=== PATIENT | male | born 1995 | race Caucasian/White ===

== ENCOUNTER 2018-08-08 15:35 | Outpatient (REF) | payer MEDICAID, SELFPAY ==
[2018-08-08 21:18] LABS: ALT 29 U/L (12-78); AST 19 U/L (15-37); Albumin 4.2 g/dL (3.4-5.0); Alkaline Phosphatase 108 U/L (46-116); Anion Gap 8.3 mmol/L (3-11); BUN 12 mg/dL (7-18); Bilirubin, Total 0.5 mg/dL (0.2-1.0); CO2 28.7 mmol/L (21.0-32.0); CREATININE 1.08 mg/dL (0.70-1.30); Calcium 10.1 mg/dL (8.5-10.1); Chloride 103 mmol/L (98-107); Glucose 85 mg/dL (70-100); Magnesium 1.7 mg/dL (1.8-2.4); Potassium 4.6 mmol/L (3.5-5.1); Sodium 140 mmol/L (136-145); Total Protein 7.2 g/dL (6.4-8.2)
[2018-08-08 21:32] LABS: HCT 44.7 % (40.0-50.0); HGB 15.4 g/dL (13.5-17.5); Mean Corp. HGB Concentration 34.5 g/dL (32.0-36.0); Mean Corpuscular Hemoglobin 31.4 pg (27.0-33.0); Mean Corpuscular Volume 91.2 fL (80-95); Mean Platelet Volume 11.5 fL (8.0-11.0); Platelet Count 253 x1000/uL (130-400); RBC Distribution Width 12.4 % (11.8-14.1); White Blood Cell Count 9.58 k/cumm (4.4-10.8)
== END 2018-08-08 15:55 ==
LOC: NCHCN 15:35
PROVIDERS: Visit Provider Family Medicine
DX: R56.9 Unspecified convulsions (principal)
CPT/HCPCS: 80053; 85027; 83735

== ENCOUNTER 2020-01-04 16:21 | Outpatient (REF) | payer MEDICAID, SELFPAY ==
[2020-01-06 09:28] LABS: Hepatitis B Surface Ag Negative (Negative)
[2020-01-06 10:12] LABS: HIV-1/2 Ag & Ab Screen Negative (Negative)
[2020-01-06 10:18] LABS: Hepatitis C Ab w Rflx HCV PCR Negative (Negative)
[2020-01-06 11:20] LABS: Hepatitis B Surface Ab Positive (See Note)
== END 2020-01-04 16:41 ==
LOC: NCHCN 16:21
PROVIDERS: Visit Provider Internal Medicine
DX: W46.1XXA Contact with contaminated hypodermic needle, initial encounter (principal); Z20.828 Contact with and (suspected) exposure to other viral communicable diseases
CPT/HCPCS: 80053; 86706; 86803; 87340; 87389; 85025

== ENCOUNTER 2020-07-25 21:07 | Emergency (ER) | payer MEDICAID, SELFPAY ==
[2020-07-25 21:10] VITALS: BP 142/89; PULSE 84; RESP 18; TEMP 37.3; O2SAT 96
--- NOTE | 2020-07-25 21:26 | ED.GENADUL_ITS ---
Discharge Plan Disposition Patient Disposition: HOME Condition: Stable Discharge Details Clinical Impression: Depression Primary Care Provider: None,None ED Provider: Aleks Vanessa Home Meds and New Rx's Prescriptions: New fluoxetine [Prozac] 10 mg capsule 10 mg PO DAILY Qty: 30 RF: 0 Discontinued fluoxetine [Prozac] 10 mg Capsule 10 mg PO DAILY RF: 0 Discharge Instructions Instructions: Depression (ED) Additional Instructions: At this time you have agreed to the safety plan that has been put in place with our mental health advocates and your family. Please abide by this. Please take your regular Prozac, 10 mg every day as prescribed. If you need any additional help with your prescription that was prescribed by your family doctor please contact us or your family doctor. If you notice any worsening of your symptoms, or any new symptoms such as vomiting, diarrhea, fever, chills, shortness of breath, chest pain, numbness, weakness, or fainting , please return immediately to the emergency department for reevaluation. Please follow up with your primary care provider at your scheduled appointment on for reassessment and reevaluation. As always, it was a pleasure participating in your medical care today. Discharge Data Discharge Date/Time-TO BE ENTERED AT DEPARTURE: 07/26/20 11:00 Medical Decision Making <DIAN Nunn - Last Filed: 07/26/20 15:09> Patient is a pleasant 25-year-old male presenting today with chief complaint of suicidal ideation. Patient brought in via police. He reports that he is been having difficulties at home. Lives with girlfriend and her mother. Patient reports that he made a promise to his significant others to see his father that he would care for the 2 of them. However, he expresses frustration that he works 2 jobs and they are not employed. Reports difficulty sleeping. Reports that he has not seen his counselor in several months as they left the practice. Has not had his Prozac in several months. Reports he had been on 20mg Prozac previously. REports that today he began having suicidal ideation and planned to have someone else do this. Expressed to his sister that he wanted by type copy examiner. He denies thoughts of harming others. No ETOH or drug use. Denies halluciations. Patient here voluntarily and wishes to proceed with care and evaluation. On exam, patient appears anxious and upset. He exhibits fair personal insight. He is agreeable to moving forward to seeking care. He would like to be able to speak with mental health. Would like to have a counselor once again as well as begin Prozac which he had been on previously. Reviewed chart from [facility]. Patient appears to last been on Prozac last fall. Past medical history pertinent for depression/anxiety, cognitive deficit and frontal lobe dysfunction, asthma, seizure, chronic low back pain. Concerned that patient has had increase in stressor in the setting of poorly controlled, progressive, depression. I have requested [employer]. Lo in blue scru bs. MH consulted. Mental health evaluated the patient. They do feel that patient would benefit from inpatient hospitalization. Patient would like to be admitted voluntarily. Referrals have been sent. We do not currently have the capacity to have the patient admitted to inpatient bed. Patient will remain in the ED. At the end of my shift, patient resting comfortably. I did give him 10 mg of Prozac as was previously prescribed by his mental health provider. Care transition to Dr. Whelan with disposition pending <Devin Whelan MD - Last Filed: 07/26/20 00:36> pt voluntary for worsening depression and SI. Sleeping but awakens easily and currently no new complaints, will remain in the ED as no staffing availability to move upstairs until psych placement is found <Aleks Vanessa DO - Last Filed: 07/26/20 10:42> Patient was signed out to me by my colleague Dr. Devin Whelan. Please refer to his HPI, physical exam assessment and plan. At time of signout we are awaiting reevaluation by mental health. Mental health has come and evaluated the patient, at this time they feel that the patient is safe for discharge after a safety plan was put in place. The case was discussed in between myself, family, the patient and the mental health provider. All have agreed with a safety plan and agree with the current plan. Patient will be discharged with close follow- up with his PCP on , close follow-up with mental health throughout the week, continuation on his home Prozac. I have extensively reviewed the treatment plan and discharge instructions with the patient and their family. I have addressed all patient concerns at this time. The patient and family was made aware of what symptoms to monitor for that would warrant a return to the emergency department. Discussed the plan with the patient and family, they demonstrate verbal understanding and agreement with our assessment and plan at this time. The documentation in this chart was dictated using [employer] dictation software. Please excuse any dictation errors. HPI <DIAN Nunn - Last Filed: 07/26/20 15:09> General Mode of arrival: ambulatory . Date/Time Provider Initiated Documentation: 07/25/20 21:21 . Limitations to Documentation: no limitations . Information obtained by: patient, police and RN notes reviewed . History of Present Illness 25 year old M presents to the emergency department with the chief complaint of suicidal ideation, described as moderate, Patient started experiencing this day(s) (SI began today, depression has been worsening for months) and it has been constant. No relieving factors improve symptom(s), No exacerbating factors reported . Patient notes no other symptoms.. Patient did receive the following treatments prior to arrival, none Related Data Home Medications Medication Instructions Recorded Confirmed fluoxetine [Prozac] 10 mg PO DAILY #30 cap 07/26/20 Previous Rx's Medication Instructions Recorded fluoxetine [Prozac] 10 mg PO DAILY #30 cap 07/26/20 Allergies Allergy/AdvReac Type Severity Reaction Status Date / Time almond Allergy Severe Throat Unverified 07/26/20 07:08 closes cephalexin [From Keflex] Allergy Severe Throat Unverified 07/26/20 07:08 closes Latex, Natural Rubber Allergy Unverified 07/25/20 23:07 Review of Systems <DIAN Nunn - Last Filed: 07/26/20 15:09> Constitutional Constitutional: Reports as per HPI, Denies chills, Denies fatigue, Denies fever(s), Denies headache(s) and Denies weakness Eyes Eyes: Denies change in vision ENT Ears, Nose, Mouth, and Throat: Denies headache(s) Cardiovascular Cardiovascular: Reports as per HPI, Denies chest pain, Denies lightheadedness, Denies dyspnea and Denies dyspnea on exertion Respiratory Respiratory: Reports as per HPI, Denies cough, Denies dyspnea and Denies dyspnea on exertion Gastrointestinal Gastrointestinal: Reports as per HPI, Denies abdominal pain, Denies change in bowel habits, Denies nausea and Denies vomiting Genitourinary Genitourinary: Denies system reviewed and no additional complaints, except as documented (denies any change in urinary habits) Musculoskeletal Musculoskeletal: Denies abnormal gait Integumentary/Breasts Skin/Breast: Reports as per HPI and Denies rash Neurologic Neurologic: Denies abnormal movements, Denies abnormal speech, Denies abnormal gait, Denies headache(s), Denies paresthesias and Denies weakness Endocrine Endocrine: Denies fatigue PFSH <DIAN Nunn Last Filed: 07/26/20 15:09> Social History Smoking/Tobacco Use Status: Current every day Tobacco Type: cigarettes Smoking risk assessment performed?: Yes Alcohol Intake: current Alcohol Intake frequency: holidays/special occasions only Drug use: Never Substance use type: does not use Do you feel safe at home: Yes Do you feel safe in your relationship?: Yes Additional Social history: States he is homeless as of today because he and his girlfriend broke up. Per [employer] patient could possibly go to his mothers house. Exam <DIAN Nunn Last Filed: 07/26/20 15:09> Const General: cooperative, healthy appearing, comfortable, no acute distress, well developed and well groomed Nutritional Appearance: average body habitus and well nourished Orientation: alert and awake Eyes General: appearance normal, both eyes and all related structures Resp Effort & Inspection: normal respiratory effort, able to speak in complete sentences and no respiratory distress Auscultation: clear to auscultation bilaterally, no rales, no rhonchi and no wheezes Cardio Rate: regular rate Rhythm: regular rhythm Heart Sounds: S1 normal and S2 normal Skin General skin exam: no rashes or lesions noted Trauma: no lacerations or abrasions Neuro General: patient alert and patient awake Cognition: normal cognition Speech: speech normal Gait: normal gait Psych Appearance: grossly normal and well kempt Mental Status: mental status grossly normal Speech and Movement: speech and movement normal Mood: anxious mood Affect: sad Attitude: cooperative Thought Process: normal Thought Content: suicidality Insight: fair Judgment: fair Sign Out <DIAN Nunn Last Filed: 07/26/20 15:09> Sign Out Data: Sign Out Comment: Patient signed out to Dr. Whelan with disposition pending. SI with plan. Given 10mg Prozac as he was previously prescribed. Voluntary. Already evaluated by , awaiting for placement. Last updated by Ayse Chacko PA at 07/25/20 23:18 Sign Out Comment: SI with plan, is currently voluntary waiting placement Last updated by Devin Whelan MD at 07/26/20 00:31
[2020-07-25 21:48] LABS: Bilirubin Negative (Negative); Blood Negative (Negative); Clarity Clear (Clear); Glucose Negative (Negative); Ketones Negative (Negative); Leukocyte Esterase Negative (Negative); Nitrite Negative (Negative); Specific Gravity 1.025 (1.005-1.025); Urobilinogen 0.2 EU/dL (Up TO 0.2); pH 6.5 (5-8)
[2020-07-25 21:52] LABS: Abs Immature Grans 0.04 10^3/uL (0.0-0.06); Absolute Basophil Count 0.05 10^3/uL (0.0-0.2); Absolute Monocyte Count 0.68 10^3/uL (0.1-0.8); Absolute Neutrophil Count 9.74 10^3/uL (1.2-6.7); Basophils % 0.4; Eosinophils % 0.7; HCT 40.9 % (40.0-50.0); HGB 13.7 g/dL (13.5-17.5); Immature Grans % 0.3; Lymphocytes % 13.1; MCH 31.1 pg (27.0-33.0); MCHC 33.5 % (32.0-36.0); MCV 92.7 fL (80-95); MPV 9.2 fL (8.0-11.0); Monocytes % 5.6; Neutrophils % 79.9; Nucleated RBC 0 %; Platelet Count 257 10^3/uL (130-400); RBC 4.41 10^6/uL (4.36-5.78); RDW 11.9 % (11.8-14.1); RDW-SD 40.7 fL; WBC 12.19 10^3/uL (4.4-10.8)
[2020-07-25 21:54] LABS: Bacteria Negative HPF (Negative); C & S Indicated? No; Casts Negative LPF (Negative); Crystals Negative HPF (Negative); Epithelial Cells Negative HPF (Negative); Mucus Moderate (Negative); Other Cells Negative (Negative); RBC 0-2 HPF (0-2); WBC Negative HPF (0-5)
[2020-07-25 21:55] LABS: Absolute Eosinophil Count 0.09 10^3/uL (0.0-0.7)
[2020-07-25 21:59] LABS: *AMPHETAMINES SCREEN URINE Negative (Negative); *BARBITURATES SCREEN URINE Negative (Negative); *BENZODIAZEPINES SCREEN URINE Negative (Negative); Cannabinoids THC Negative (Negative); Cocaine Screen,Urine Negative (Negative); METHADONE URINE SCREEN Negative (Negative); OPIATES URINE SCREEN Negative (Negative)
[2020-07-25 22:00] LABS: Tricyclic Antidepressants Negative (Negative)
[2020-07-25 22:05] LABS: ALT 31 U/L (16-63); AST 33 U/L (15-37); Albumin 4.3 g/dL (3.4-5.0); Alkaline Phosphatase 80 U/L (46-116); Anion Gap 9.2 mmol/L (3-11); BUN 15 mg/dL (7-18); Bilirubin, Total 0.3 mg/dL (0.2-1.0); CO2 25.8 mmol/L (21.0-32.0); Calcium 9.1 mg/dL (8.5-10.1); Chloride 107 mmol/L (98-107); Glucose 95 mg/dL (74-106); Potassium 3.9 mmol/L (3.5-5.1); Sodium 142 mmol/L (136-145); TSH 1.72 uIU/mL (0.36-3.74); Total Protein 7.2 g/dL (6.4-8.2)
[2020-07-25 22:06] LABS: ETHANOL BLOOD < 3.0 mg/dL (<3)
[2020-07-25 22:11] LABS: Salicylate 3.5 mg/dL (<2.8)
[2020-07-25 22:12] LABS: Acetaminophen < 2 ug/mL (10-30)
[2020-07-25] MEDS: FLUoxetine 10 MG TAB PO (23:23)
[2020-07-25 23:45] LABS: Source Nasal/Nares
[2020-07-26 00:24] LABS: COVID-19 PCR Negative (Negative)
--- NOTE | 2020-07-26 05:36 | PDOC.CMSAFED ---
- If Service Date Differs Date of service: 07/25/20 Time of Service: 23:00 Care Management Safety Plan Status: Voluntary VOLUNTARY FOR INPATIENT PSYCHIATRIC STABILIZATION. Patient is appropriate in all interactions since arriving at [facility]; Pt has demonstrated appropriate coping and communication skills, has articulated his or her needs and concerns and is fully engaged during staff interactions. Safety plan has been established with patient, and care team, to adhere to patient goals, identify restrictions based on behavioral status, address nutrition, and determine allowed personal belongings, tools for hygiene and personal care. Determine level of activity including ambulation, level of supervision, visitors, and determine privileges based on behaviors and level of engagement by pt. SAFETY PLAN: 1. Will remain on suicide precautions. In Paper Clothes 2. Will remain in room under direct supervision of one-on-one staff at all times provided by [employer]; DUL[employer], [employer] transportation maintenance worker. 3. May have paper cups, plates, finger foods as well as a cardboard spoon with which to eat meals. 4. Follow [facility] Management of the Admitted Behavioral Health Patient policy. 5. Comfort bath system only. 6. No personal belongings at this time. 7. Visitors-No visitors at this time 8. Activities: music/streaming tablet, soft cart items at RN discretion 9. Bathroom privileges; with escort in ED. 10. Phone: incoming/outgoing calls permitted at RN discretion. 11. Due to VOLUNTARY status, if patient wishes to leave [facility], staff will contact [facility] Crisis Screener ([phone]) and On-Call Bonded Strand Operator ([phone]) as soon as possible. In the event of elopement, notify [facility] Police ([phone]). Patient is currently voluntarily at [facility] and seeking inpatient admission when a bed becomes available. [facility] Frontline Time Study Statistician will continue seeking placement. Please contact the Senior Qa Analyst Bonded Strand Operator ([phone]) and [facility] Time Study Statistician ([phone]) for any needed changes in the Safety Plan. Safety plan has been provided to interdepartmental care team.
--- NOTE | 2020-07-26 06:25 | MHPN_ITS ---
Date of service: 07/26/20 Time of Service: 06:32 Mental Health Progress Note Progress Note Progress Note: Presenting Issue: Client transported to ED by Ashley MALIK after texting his mother that he wanted to , but was too scared to end his own life , and wanted to suicide by commercial helicopter pilot. Precipitating Factors Client reports he has been working two jobs to support his girlfriend and her mother after girlfriend's father recently due to lung cancer. Client reports mounting stressors at home including work/home life balance, fighting with his girlfriend, and betrayal by his close friends. Client reports he rarely sleeps and lives off energy drinks. Client states, I've wanted help for a long time. I can't kill myself, and I just wanted someone else to do it. Disposition * Behavior: Client is calm and cooperative *Eye Contact: good *Mood: Client reports mood is a combination of sad, depressed, and angry *Affect: congruent *Appetite: client reports not eating well, and drinking up to eight energy drinks per day *Sleep(troubel falling/staying asleep): Client reports poor sleep almost every day, and sometimes goes without any sleep Plan(please elaborate and include that physician is consulted with plan and/or placement): Client will remain at [facility] to await placement. [facility] opening paperwork complete. Referral sent to Deniz Wiseeat, [facility], and [facility] Clinician's Name , Title, and Signature Anastasiya Goss Emergency Services Clinician [facility] Make sure that you are photocopying and submitting this to [facility] records Dept. to be scanned into chart.
--- NOTE | 2020-07-26 10:38 | PDOC.MHCN_ITS ---
Date of service: 07/26/20 Time of Service: 10:38 Mental Health Crisis Note Presenting Issue How did you arrive at the ED and why did you come: Pt arrived on 07.25.2020 via [facility] after sending his mother a text that he was at his breaking point and wanted to by suicide by buffer copper. Precipitating Factors Pt denied SI today self reporting his risk 0/10. He denied HI. There are no signs of delusions. Disposition BEHAVIOR: Pt is cooperative and engaged. He is willing to safety plan to go home to his mother's home. He has fair insight and judgment and mother is willing to safety plan with us to ensure Pt's needs are met. Pt is slightly distracted by his phone during the assessment. EYE CONTACT: Pt makes good eye contact. MOOD: Pt reported his mood is improved from last night as he feels he is on the right track to get the help he has been seeking and was not able to get before a August appointment with his PCP. AFFECT: Affect is flat. APPETITE: Pt reports he only eats when he is hungry. SLEEP(trouble falling/staying asleep: Pt reported that he does not sleep well because of back pain he has. Plan Pt is going to get a ride home via [facility]. He is going to his mother's not his girlfriends. He will do twice daily check in calls with [facility] indefinitely. During these check in's he will inform [facility] who he has spoken to regarding counselor outreaches per the list [facility] gave him before discharge. He will see his a provider at [facility], Lucretia Baptiste on at 8 am with a 7:45 arrival time. Mom notes that she does not believe the Prozac is working anymore as he has taken it for so long. Signature Clinician's Name/Title: Tessy Rodriguez MS, [facility] Emergency Services Clinician, [facility]
--- NOTE | 2020-07-26 10:47 | CMPROGNOTE_ITS ---
- If Service Date Differs Date of service: 07/26/20 Time of Service: 10:47 Care Management Progress Note S/O: Royce has a history of depression and has been prescribed Prozac for approximately 10 years. He recently stopped taking his medication, which resulted in a worsening of the depression. Royce became overwhelmed by recent life stressors and the of his girlfriend's father, whom he was close to, resulting in what he calls a meltdown. Royce met with Tessy from [facility] for an assessment this morning. He reports feeling better and he is currently able to contract for safety. A: Royce is a 25 year old male who presents in the ED via police for suicidal ideation. P: Royce is able to enter into a safety plan and a plan is created with his mother's input. Royce is being discharged home to his mother's house. He will follow up with his PCP at [facility] as scheduled to restart anti-depressant medication. Royce will also do check in phone calls with [facility] Crisis Services twice daily for as long as deemed necessary by [facility]. Royce is being transported home via [facility] coordinated by JAMIR.
== END 2020-07-26 11:00 | disposition home or self-care (01) ==
PROVIDERS: Physician Assistant; Emergency Provider Student in an Organized Health Care Education/Training Program
DX: F41.8 Other specified anxiety disorders (principal); R45.851 Suicidal ideations; T43.226A Underdosing of selective serotonin reuptake inhibitors, initial encounter; Z91.128 Patient's intentional underdosing of medication regimen for other reason; Z03.818 Encounter for observation for suspected exposure to other biological agents ruled out
CPT/HCPCS: 36415; 80053; 80307; 87635; 99285; 80320; 80329; 81003; 81015; 84443; 85025; 99284